=== PATIENT | female | born 1965 | race Caucasian/White ===

== ENCOUNTER 2016-11-16 09:21 | Emergency (ER) | payer OTHER ==
--- NOTE | 2016-11-16 10:30 | RAD ---
Indication: Neck injury. Single lateral view of the cervical spine demonstrates straightening of the normal lordosis. No evidence of facet malalignment is noted. Spinal canal appears to be intact. IMPRESSION: Single lateral view of the cervical spine demonstrates straightening of the normal lordosis with no definite fracture or spondylolisthesis.
--- NOTE | 2016-11-16 10:59 | RAD ---
Indication: Syncope, neck injury. 5 views of the cervical spine demonstrates straightening of the normal lordosis. Disc spaces all well-preserved. Spinal canal appears to be intact. IMPRESSION: No fracture of the cervical spine is present.
[2016-11-16 11:05] VITALS: BP 87/61
--- NOTE | 2016-11-16 11:12 | UC ---
Joelle Ruff Salem, [facility] on 11/16/16 at 1023 . Syncope/New Syncope HPI - HPI Summary HPI Summary: HPI: Patient is a 51 y/o female who presents to the s/p a syncope episode this morning. She reports being dizzy all night and lightheaded this morning. She also reports tingling all over the body prior to the episode, but she denies incontinence. She and her are unsure how long she was unconscious for. She reports a CHAVEZ in the frontal and parietal lobe right now, but CP (not radiating) and an asthmatic attack yesterday. Pt reports she has experienced near syncope twice before (approximately 2 years ago), but she has never come into the ER for it. Pt also reports going through a law suit, increased stress, and experiencing palpitations in the middle of the night. She reports no hx of seizures. MD note: Pt with hx of migraines. On nortriptyline. Woke up to go to bathroom at least 3 times during the night with feeling of tingling. In the morning, she woke up and was standing at the sink when she apparently fainted possibly hitting her chin. She woke up sitting against her tub. Upon speaking with her and her , it is unclear if she was unconscious for a few second or for 5-10 minutes. She reports to the urgent care with complaint of neck discomfort, anxiety, and lightheadedness. She was put into a [place] collar at triage and sent for c-spine x-ray. Nurses note: Passed out in the bathroom this AM, now stating neck pain toward mid back. Teresa collar on. Dizziness when standing up. States she woke up last night with her heart racing; states she was thinking about a law suit she had just heard about. Took a Xanax and Ibuprofen after syncopal episode. - History Of Current Complaint Stated Complaint: FELL PASSED OUT NECK INJURY Time Seen by Provider: 11/16/16 09:26 Hx Obtained From: Patient, Family/Director Of Regulatory Affairs - . Hx Last Menstrual Period: > a year Onset/Duration: Sudden Onset Context: Unwitnessed, Loss Of Consciousness Aggravating Factor(s): Nothing Alleviating Factor(s): Nothing Associated Signs And Symptoms: Positive: Dizzy, Lightheadedness, Other - Anxiety. Neck discomfort. - Allergies/Home Medications Allergies/Adverse Reactions: Allergies Allergy/AdvReac Type Severity Reaction Status Date / Time environmental Allergy Edema Uncoded 11/16/16 09:40 Home Medications: Home Medications Fexofenadine (NF) [Lucy (NF)] 60 mg PO 11/16/16 [History] Ibuprofen [Ibuprofen 200 MG] 800 mg PO Q6H PRN 11/16/16 [History Confirmed 11/16] PMH/Surg Hx/FS Hx/Imm Hx Endocrine History Of: Reports: Thyroid Disease Denies: Diabetes Cardiovascular History Of: Denies: Cardiac Disorders Respiratory History Of: Reports: Asthma Denies: COPD - Surgical History Surgical History: Yes Surgery Procedure, Year, and Place: sinus 2012; left knee; 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 - Social History Alcohol Use: Rare Substance Use Type: None Smoking Status (MU): Never Smoked Tobacco - Immunization History Most Recent Influenza Vaccination: fall 2015 Most Recent Tetanus Shot: thinks it was last year Review of Systems Constitutional: Negative ENT: Other - Neck discomfort. Neurological: Other - Lightheadedness and dizziness. All Other Systems Reviewed And Are Negative: Yes Physical Exam Triage Information Reviewed: Yes Appearance: Well-Appearing, No Pain Distress, Well-Nourished Vital Signs: Initial Vital Signs Temp 98.3 F 11/16/16 09:43 Pulse 69 11/16/16 09:43 Resp 16 11/16/16 09:43 BP 88/56 11/16/16 09:43 Pulse Ox 96 11/16/16 09:43 Vital Signs Reviewed: Yes Eyes: Positive: Conjunctiva Clear ENT: Positive: Hearing grossly normal, Pharynx normal, TMs normal, Other: - No nystagmus.. Negative: Muffled/hoarse voice Neck: Positive: Other: - PARACERVICAL MUSCLE DISCOMFORT. Respiratory: Positive: Chest non-tender, Lungs clear, Normal breath sounds, No respiratory distress Cardiovascular: Positive: RRR, No Murmur Abdomen Description: Positive: Nontender, No Organomegaly, Soft Bowel Sounds: Positive: Present Musculoskeletal: Positive: Strength Intact, Other: - SHANKS. Back is clear, no sign of injury. Full ROM of shoulder. No bony cervical, thoracic, or lumbar tenderness. Neurological: Positive: Alert Psychological: Positive: Age Appropriate Behavior Diagnostics - Laboratory Diagnostic Studies Completed/Ordered: Urine is negative Specif gravity: 1.015. Blood sugar is 110. No orthostatic changes. - Radiology C-spine XR Radiology Interpretation Completed By: Radiologist - IMPRESSION: No fracture of the cervical spine is present. - EKG Cardiac Rate: NL - 71 bpm. Normal sinus rhythm. No ischemia or arrhythmias. Syncope Course/Dx - Course Course Of Treatment: I discussed this episode with this pt and her . Although the pt had a previous hx of mitral valve prolapse, that condition was not evident today. Her EKG showed no ischemia or arrhythmia. Her glucose was within nml limits and her c-spine showed no fracture. She did have paracervical muscle discomfort. There was no evidence of vertigo or nystagmus. Most likely this syncope episode is related to pts migraine, her current anxiety, and stress. However, did discuss the necessity for careful follow up for any repeat episode and if she does have the sensation of migraine (tingling aura) she should not ambulate without assistance. - Differential Dx/Diagnosis Provider Diagnoses: Syncopal episode of unknown duration, probably related to migraine CHAVEZ. . Discharge - Discharge Plan Condition: Stable Disposition: HOME Patient Education Materials: Migraine Headache (ED), Syncope (ED) Referrals: Flor Shah MD [Primary Care Provider] - Additional Instructions: WE DISCUSSED: 1. CALL YOUR DOCTOR ON FRIDAY. 2. REST, MOVE SLOWLY. MOVE WITH ASSISTANCE IF YOU SENSE A MIGRAINE. 3. STAY WELL HYDRATED. 4. THIS IS PROBABLY RELATED TO YOUR MIGRAINE AND STRESS, BUT FURTHER EVALUATION WILL BE NEEDED IF ANOTHER EPISODE OCCURS. 5. YOUR EKG, GLUCOSE, URINE, BLOOD PRESSURE, NEXT X RAY AND PULSE WERE NORMAL. CALL US WITH ANY QUESTIONS OR CONCERNS. 6. GO TO ED FOR REPEAT EPISODE. The documentation as recorded by the Joelle kuhn Salem accurately reflects the service I personally performed and the decisions made by , Sidney Stanley MD.
== END 2016-11-16 11:21 | disposition home or self-care (01) ==
LOC: UCEAST 09:21
DX: R55 Syncope and collapse (principal); M54.2 Cervicalgia
CPT/HCPCS: 72020; 72050; 81003; 93005; 99213; G0463

== ENCOUNTER 2018-08-24 13:08 | Emergency (ER) | payer OTHER ==
[2018-08-24 13:15] VITALS: BP 115/80
--- NOTE | 2018-08-24 14:45 | ED ---
Throat Pain/Nasal Congestion - HPI Summary HPI Summary: 53 yo white female p/w left ear pain x 1 month, denies prodrome of URI sx /f/c/n /v/d - History of Current Complaint Chief Complaint: UCEar Time Seen by Provider: 08/24/18 13:50 Hx Obtained From: Patient Onset/Duration: Lasting Weeks, Still Present Severity: Moderate Associated Signs And Symptoms: Positive: Negative Cough: None - Allergies/Home Medications Allergies/Adverse Reactions: Allergies Allergy/AdvReac Type Severity Reaction Status Date / Time environmental Allergy Edema Uncoded 08/24/18 13:15 PMH/Surg Hx/FS Hx/Imm Hx Previously Healthy: Yes Endocrine/Hematology History: Reports: Hx Thyroid Disease Denies: Hx Diabetes Cardiovascular History: Denies: Hx Hypertension, Hx Pacemaker/ICD Respiratory History: Reports: Hx Asthma Denies: Hx Chronic Obstructive Pulmonary Disease (COPD) History: Denies: Hx Renal Disease Sensory History: Denies: Hx Hearing Aid Neurological History: Reports: Hx Headaches - MIGRANES Psychiatric History: Denies: Hx Panic Disorder - Cancer History Cancer Type, 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 - Social History Alcohol Use: Rare Substance Use Type: Reports: None Smoking Status (MU): Never Smoked Tobacco Review of Systems Constitutional: Negative Negative: Fever, Chills, Fatigue Eyes: Negative Positive: Ear Ache. Negative: Sore Throat, Nasal Discharge Cardiovascular: Negative Respiratory: Negative Gastrointestinal: Negative Genitourinary: Negative Musculoskeletal: Negative Skin: Negative Neurological: Negative All Other Systems Reviewed And Are Negative: Yes Physical Exam - Summary Physical Exam Summary: Vital Signs Reviewed: Yes Skin: Positive: Warm Head/Face: Positive: Normal Head/Face Inspection Eyes: Positive: Normal ENT: Positive: good light reflex on B/L TM, mild opacity on left TM >right Without effusion Neck: Positive: Supple Respiratory/Lung Sounds: Positive: Clear to Auscultation Cardiovascular: Positive: Normal, RRR, S1, S2 Abdomen Description: Positive: Nontender Musculoskeletal: Positive: Normal Neurological: Positive: Normal Psychiatric: Positive: Normal, Affect/Mood Appropriate Triage Information Reviewed: Yes Vital Signs On Initial Exam: Initial Vitals Temp Pulse Resp BP Pulse Ox 36.6 C 89 17 115/80 98 08/24/18 13:12 08/24/18 13:12 08/24/18 13:12 08/24/18 13:12 08/24/18 13:12 Vital Signs Reviewed: Yes Diagnostics - Vital Signs Vital Signs Temp Pulse Resp BP Pulse Ox 08/24/18 13:12 36.6 C 89 17 115/80 98 - Laboratory Lab Statement: Any lab studies that have been ordered have been reviewed, and results considered in the medical decision making process. EENT Course/Dx - Diagnoses Provider Diagnoses: Left otitis media Discharge - Sign-Out/Discharge Documenting (check all that apply): Patient Departure All imaging exams completed and their final reports reviewed: Yes - Discharge Plan Condition: Stable Disposition: HOME Prescriptions: Amoxicillin/Clavulanate TAB* [Augmentin TAB 875*] 875 mg PO BID 7 Days #14 tab Patient Education Materials: Ear Infection (ED) Referrals: Flor Shah MD [Primary Care Provider] - - Billing Disposition and Condition Condition: STABLE Disposition: Home
== END 2018-08-24 14:45 | disposition home or self-care (01) ==
LOC: UCEAST 13:08
DX: H66.92 Otitis media, unspecified, left ear (principal); Z91.09 Other allergy status, other than to drugs and biological substances
CPT/HCPCS: 99212; G0463